=== PATIENT | female | born 1940 | race African-American/Black ===

== ENCOUNTER 2018-12-11 19:03 | Emergency (ER) | payer OTHER ==
[2018-12-11 19:30] VITALS: BMI 26.6
--- NOTE | 2018-12-11 20:14 | PDOC ---
Attending Attestation - Resident Resident Name: John Maldonado - ED Attending Attestation I have performed the following: I have examined & evaluated the patient, The case was reviewed & discussed with the resident, I agree w/resident's findings & plan, Exceptions are as noted - HPI HPI: 12/11/18 20:31 77 yo female has had nausea,vomiting and diarrhea since last night her last episode of vomiting and loose stools was last night - Physicial Exam PE: 12/11/18 20:33 wnwd 77 yo female in no acute distress head ncat neck supple lungs cta b/l cvs [id number] abd no guarding,no rebound,flat,+bs no cva tenderness skin warm and dry neuro axox3,ambulatory psych appropriate - Medical Decision Making 12/11/18 21:10 this 77 yo female has had vomiting and diarrhea that started last night and stopped this morning her daughter brought her in for hydration 12/11/18 21:31 cbc there is no leukocytosis chemistries show a mild hypokalemia and hypomagnesia and the pt will be supplemented
[2018-12-11] MEDS ORDERED: LACTATED RINGERS SOLUTION 1000 ML INFUS.BAG IV ONE (20:26)
[2018-12-11] MEDS ORDERED: ONDANSETRON 4 MG/2 ML VIAL IVPUSH ONE (20:26)
--- NOTE | 2018-12-11 20:37 | PDOC ---
History of Present Illness - General Chief Complaint: Nausea/Vomiting Stated Complaint: DIARRHEA Time Seen by Provider: 12/11/18 20:07 - History of Present Illness Initial Comments: HPI: 77 y/o female presenting to [facility] ER complaining of nausea, vomiting, and diarrhea since last night. Vomiting described as nonbloody and nonbilious. Diarrhea described as watery and nonbloody. Symptoms resolved earlier this morning but pt sought emergency evaluation when the nausea returned. Denies abdominal pain. Denies sick contacts. No recent travel. Last EGD: Last year Last Colonoscopy: Three years ago PCP: Dr. Bridges Social Hx: - EtOH: Denies - Tobacco: Former smoker, stopped 2012 - Street drugs: Denies Medical Hx: - R Renal Cyst - HTN - HLD - GERD Past History - Travel Traveled outside of the country in the last 30 days: No Close contact w/someone who was outside of country & ill: No - Past Medical History Allergies/Adverse Reactions: Allergies Allergy/AdvReac Type Severity Reaction Status Date / Time No Known Allergies Allergy Verified 12/11/18 19:29 Home Medications: Ambulatory Orders Hydrochlorothiazide [Hctz] 12.5 mg PO DAILY 12/21/12 Metoprolol Tartrate [Lopressor] 12.5 mg PO BID 12/21/12 Oxycodone HCl/Acetaminophen [Percocet 5-325 mg Tablet] 1 - 2 tab PO Q6H #14 tablet 12/21/12 levoFLOXacin [Levaquin] 250 mg PO DAILY #20 tablet 12/21/12 Cholecalciferol (Vitamin D3) [Vitamin D] 1,000 unit PO DAILY 12/27/12 Acetaminophen Injection [Ofirmev Injection -] 1,000 mg PO Q6H PRN #0 vial Amino Acids/Protein Hydrolys [Prostat Sugar-Free Packet -] 30 ml PO BIDWM #0 packet 01/12/13 Cefuroxime Axetil [Ceftin] 500 mg PO BID #0 tablet 01/12/13 Ferrous Sulfate [Feosol] 325 mg PO BID #0 ud 01/12/13 Heparin - 5,000 unit SQ BID #0 ml 01/12/13 Metoprolol Tartrate [Lopressor -] 12.5 mg PO BID #0 tab 01/12/13 Amlodipine Bes/Olmesartan Med [Anselmo 5-40 mg Tablet] 2 each PO DAILY 07/13/13 COPD: No HTN: Yes - Suicide/Smoking/Psychosocial Hx Smoking Status: Yes Smoking History: Former smoker Have you smoked in the past 12 months: No Number of Cigarettes Smoked Daily: 2 Information on smoking cessation initiated: No 'Breaking Loose' booklet given: 12/27/12 Hx Alcohol Use: No Drug/Substance Use Hx: No Review of Systems - Review of Systems Able to Perform ROS?: Yes Comments:: In addition to that documented in the HPI above, the additional ROS was obtained : Constitutional: Denies fevers, chills, or syncope Head: Denies vision changes ENMT: Denies sore throat CV: Denies chest pain Resp: Denies SOB GI: Per HPI : Denies painful urination, increased urinary frequency, hematuria, or vaginal discharge MSK: Denies recent trauma Skin: Denies new rashes Neuro: Denies new numbness or tingling or weakness Endocrine: Denies polyuria Heme: Denies bleeding or bruising *Physical Exam - Vital Signs Last Vital Signs Temp Pulse Resp BP Pulse Ox 100.2 F H 106 H 20 139/67 100 12/11/18 19:27 12/11/18 19:27 12/11/18 19:27 12/11/18 19:27 12/11/18 19:27 - Physical Exam Comments: Constitutional: Well-developed, well-nourished adult female in no acute distress or obvious discomfort. Found semi-fowlers on hospital hallway bed. Alert and oriented x4. Answered all questions appropriately and completely. Speech was non-labored, non-pressured. Head: Normocephalic. No obvious external signs of trauma. Eyes: Pupils 3mm and PERRL bilaterally. Sclerae white. Conjunctiva moist and not injected. Ears: Hearing grossly intact. Nose: No nasal discharge. Throat: Oral cavity and pharynx normal. No inflammation, swelling, exudate, or lesions. Moist mucosal membranes. Neck: Supple, trachea is midline. Cardiovascular / Chest: Regular rate and regular rhythm. No murmur, rubs, clicks, or gallops. Peripheral pulses: radial pulses full. Respiratory: Breathing unlabored. Equal chest rise and fall. Clear to auscultation bilaterally. No stridor, no wheezing, no rhonchi. Gastrointestinal: abdomen is soft, non-tender, non-distended. No hepatosplenemegaly. No pulsatile masses. No overlying skin lesions or obvious signs of trauma. Neuro: Alert and oriented. Moving all four extremities spontaneously. Skin: Warm, dry, and intact. MSK: No pretibial edema. : No R or L CVA tenderness. Psych: Affect: appropriate. Mood: normal. ED Treatment Course - LABORATORY CBC & Chemistry Diagram: 12/11/18 20:40 12/11/18 20:40 - ADDITIONAL ORDERS Additional order review: 12/11/18 12/11/18 20:40 20:40 Sodium 138 Potassium 3.4 L Chloride 104 Carbon Dioxide 26 Anion Gap 8 BUN 15 Creatinine 1.3 Creat Clearance w eGFR 39.82 Random Glucose 98 Calcium 8.6 Phosphorus 4.0 Magnesium 1.6 L Total Bilirubin 0.6 AST 25 ALT 24 Alkaline Phosphatase 88 Total Protein 8.1 Albumin 3.7 Lipase 76 12/11/18 20:40 RBC 4.10 MCV 85.1 MCHC 35.1 RDW 14.6 MPV 8.7 D Neutrophils % 90.3 H Lymphocytes % 4.1 L D Monocytes % 5.1 Eosinophils % 0.0 D Basophils % 0.5 - Medications Given in the ED: ED Medications Discontinued Medications Generic Name Dose Route Start Last Admin Trade Name Freq PRN Reason Stop Dose Admin Lactated Ringer's 1,000 ml 12/11/18 20:26 12/11/18 20:51 Lactated Ringers Solution IV 12/11/18 20:27 1,000 ml ONCE ONE Administration Magnesium Sulfate 1 gm 12/11/18 21:31 12/11/18 22:00 Magnesium Sulfate IVPB 12/11/18 21:32 1 gm ONCE ONE Administration Ondansetron HCl 4 mg 12/11/18 20:26 12/11/18 20:51 Zofran Injection IVPUSH 12/11/18 20:27 4 mg ONCE ONE Administration Potassium Chloride 40 meq 12/11/18 21:32 12/11/18 21:42 K-Dur - PO 12/11/18 21:33 40 meq ONCE ONE Administration Medical Decision Making - Medical Decision Making *Reviewed vital signs, nursing notes, and prior visit documentation (if available). 77 y/o female presenting for two days of nausea, vomiting, and diarrhea without abdominal discomfort. V/D resolved earlier this morning. Afebrile. Mild tachycardia without hypotension at triage. Will trend vitals. Well appearing on physical exam. Suspect likely viral gastroenteritis. Low suspicion for obstruction or other acute abdominal pathology based on physical exam. Will obtain CBC, CMP, Mag, and Phos given age of pt and multiple episodes of emesis. Ordered IVFB and zofran for symptom relief. CBC unremarkable for leukocytosis. CMP remarkable for mild hypokalemia. Mild hypomagnesemia. Suspect secondary to GI fluid loss. Ordered 1g IV Mag and 40 units PO Kdur. Pt only able to tolerate 20 units. Spit out the other pill. Pt reassessed. States she feels better. Abdominal exam remains unchanged from initial. No peritoneal signs. Repeat vitals remarkable for resolution of tachycardia but elevation of fever. Ordered PO Tylenol. Given reassuring exam and clinical workup, will continue with plan to discharge home. Low suspicion for SBI. Discussed imaging and laboratory results with pt. Answered all questions. Provided return precautions. Pt expressed verbal understanding and agreement with plan to discharge home with outpatient follow up. *DC/Admit/Observation/Transfer Diagnosis at time of Disposition: Nausea vomiting and diarrhea Fever Qualifiers: Fever type: unspecified Qualified Code(s): R50.9 - Fever, unspecified - Referrals Referrals: Yue Bridges MD [Primary Care Provider] - - Patient Instructions Printed Discharge Instructions: DI for Vomiting -- Adult Additional Instructions: You were seen today for nausea, vomiting, and diarrhea. Your physical exam as reassuring. Your labs showed your potassium and magnesium were a little below normal. We gave you supplemental potassium and magnesium in the department. This was likely from the vomiting and diarrhea. You may continue to feel nauseous over the next few days. Please continue to drink fluids (water, Gatorade, etc) to stay hydrated. You can try and eat a small bland meal (crackers, etc) after you have stopped vomiting for 12 hours. Return to the emergency room if your vomiting becomes much worse and you are no longer able to keep fluids down, if you begin to feel dehydrated, if you develop a fever, pass out, become disoriented, begin vomiting blood, have bloody diarrhea, or you feel like you need additional emergency care. You can also see your primary care doctor if your symptoms do not improve. - Post Discharge Activity
[2018-12-11] MEDS ORDERED: ONDANSETRON 4 MG/2 ML VIAL ONE (20:43)
[2018-12-11 21:04] LABS: BASO % 0.5 % (0-2.0); HEMATOCRIT 34.9 % (32.4-45.2); HEMOGLOBIN 12.2 GM/dL (10.7-15.3); LYMPH % 4.1 % (8-40); MCH 29.9 pg (25.7-33.7); MCHC 35.1 g/dl (32.0-36.0); MEAN CELL VOLUME 85.1 fl (80-96); MEAN PLT VOLUME 8.7 fl (7.5-11.1); MONO % 5.1 % (3.8-10.2); NEUT % 90.3 % (42.8-82.8); PLATELET COUNT 447 K/MM3 (134-434); RDW 14.6 % (11.6-15.6); WHITE BLOOD COUNT 9.5 K/mm3 (4.0-10.0)
[2018-12-11 21:20] LABS: MAGNESIUM 1.6 mg/dL (1.8-2.4)
[2018-12-11 21:25] LABS: ALBUMIN 3.7 g/dl (3.4-5.0); ALK PHOS 88 U/L (45-117); ANION GAP 8 MMOL/L (8-16); BILIRUBIN,TOTAL 0.6 mg/dL (0.2-1); BLOOD UREA NITROGEN 15 mg/dL (7-18); CALCIUM 8.6 mg/dL (8.5-10.1); CHLORIDE 104 mmol/L (98-107); CO2 26 mmol/L (21-32); CREATININE 1.3 mg/dL (0.55-1.3); GLUCOSE,RANDOM 98 mg/dL (74-106); POTASSIUM 3.4 mmol/L (3.5-5.1); SGOT/AST 25 U/L (15-37); SGPT/ALT 24 U/L (13-61); SODIUM 138 mmol/L (136-145); TOT PROT 8.1 g/dl (6.4-8.2)
[2018-12-11] MEDS ORDERED: MAGNESIUM SULF 50% (8.12 MEQ/2 ML-1 GM VIAL) IVPB ONE (21:31)
[2018-12-11] MEDS ORDERED: POTASSIUM CHLORIDE TABS 20 MEQ TABLET.ER (FP) PO ONE ×2 (21:32→21:36)
[2018-12-11] MEDS ORDERED: MAGNESIUM 1GM/D5W - 1 GM/100 ML IVPB IVPB ONE (21:36)
[2018-12-11 23:06] VITALS: BP 125/64; PULSE 91
[2018-12-11] MEDS ORDERED: ACETAMINOPHEN 500 MG TABLET (FP) PO ONE (23:09)
[2018-12-11] MEDS ORDERED: ACETAMINOPHEN 325 MG TABLET (FP) ONE (23:34)
[2018-12-12 00:13] VITALS: TEMP 99.8
== END 2018-12-12 00:12 | disposition home or self-care (01) ==
LOC: JER 19:03
PROC: 3E033GC Introduction of Other Therapeutic Substance into Peripheral Vein, Percutaneous Approach (ICD-10-PCS; principal; 2018-12-11)
PROC: 3E033GC Introduction of Other Therapeutic Substance into Peripheral Vein, Percutaneous Approach (ICD-10-PCS; 2018-12-11)
PROC: 3E0337Z Introduction of Electrolytic and Water Balance Substance into Peripheral Vein, Percutaneous Approach (ICD-10-PCS; 2018-12-11)
DX: A08.4 Viral intestinal infection, unspecified (principal); B97.89 Other viral agents as the cause of diseases classified elsewhere; E87.6 Hypokalemia; E83.42 Hypomagnesemia; I10 Essential (primary) hypertension; E78.5 Hyperlipidemia, unspecified; K21.9 Gastro-esophageal reflux disease without esophagitis
CPT/HCPCS: 36415; 80053; 83690; 83735; 84100; 85025; 96374; 96375; 99282-25

== ENCOUNTER 2023-08-03 10:16 | Day surgery (SDC) | payer OTHER ==
[2023-08-01 17:37] VITALS: BMI 26.6
[2023-08-03 13:14] VITALS: BP 113/52; PULSE 80; RESP 19; TEMP 98
== END 2023-08-03 12:47 | disposition home or self-care (01) ==
LOC: FASU-ENDO 10:16
PROVIDERS: ATTEND Internal Medicine Gastroenterology
PROC: 0DBN8ZX Excision of Sigmoid Colon, Via Natural or Artificial Opening Endoscopic, Diagnostic (ICD-10-PCS; 2023-08-03)
PROC: 0DBP8ZX Excision of Rectum, Via Natural or Artificial Opening Endoscopic, Diagnostic (ICD-10-PCS; principal; 2023-08-03 11:45)
DX: Z12.11 Encounter for screening for malignant neoplasm of colon (principal); K63.5 Polyp of colon; K62.1 Rectal polyp; K64.1 Second degree hemorrhoids; K64.8 Other hemorrhoids
CPT/HCPCS: 88305-TC